=== PATIENT | female | born 1970 | race Asian ===

== ENCOUNTER 2022-06-07 16:36 | Emergency (ER) | payer OTHER, SELFPAY ==
[2022-06-07] MEDS ORDERED: Boostrix 0.5 ML (Tdap) VIAL (>/=7 yrs of age) ONE (18:29)
== END 2022-06-07 18:55 | disposition home or self-care (01) ==
LOC: CSHERS 16:36
DX: S61.011A Laceration without foreign body of right thumb without damage to nail, initial encounter (principal); Z23 Encounter for immunization; W26.8XXA Contact with other sharp object(s), not elsewhere classified, initial encounter
CPT/HCPCS: 12001; 90471; 90715